=== PATIENT | female | born 1965 | race Caucasian/White ===

== ENCOUNTER 2016-09-01 13:08 | Emergency (ER) | payer BC ==
[2016-09-01 13:15] VITALS: BP 126/83; PULSE 84; TEMP 98.1; BMI 35.2
--- NOTE | 2016-09-01 13:53 | PDOC ---
History of Present Illness - General Chief Complaint: Carbon Monoxide Exposure Stated Complaint: EXPOSURE TO CO Time Seen by Provider: 09/01/16 13:40 History Source: Patient Exam Limitations: No Limitations - History of Present Illness Initial Comments: 09/01/16 13:49 50-year-old female sent over from doctor's office for evaluation of intermittent generalized headaches over the past few weeks associated with mild generalized fatigue. Patient states was told by the fire department and police department to go to the nearest ER since there is concern for carbon monoxide exposure. Patient denies visual changes, nausea, chest pain or shortness of breath. Patient does state has an old soreness in the house and has no carbon monoxide detectors in the home. Timing/Duration: getting worse, intermittent Severity: moderate Associated Symptoms: reports: headaches, other (fatigue) Past History - Travel Traveled outside of the country in the last 30 days: No Close contact w/someone who was outside of country & ill: No - Past Medical History Allergies/Adverse Reactions: Allergies Allergy/AdvReac Type Severity Reaction Status Date / Time red dye Allergy Intermediate Swelling Verified 09/01/16 13:12 "cillins" Allergy Mild rash, itchy Uncoded 09/01/16 13:11 Home Medications: Ambulatory Orders Levothyroxine [Synthroid -] 50 mcg PO ASDIR 09/01/16 Omeprazole 20 mg PO ASDIR 09/01/16 GI Disorders: Yes (CHRONIC PANCREATITIS.) - Surgical History Abdominal Surgery: Yes (PANCREAS X 2.) Cholecystectomy: Yes Neurologic Surgery: Yes (RT CARPAL TUNNEL.) - Psycho/Social/Smoking Cessation Hx Anxiety: No Suicidal Ideation: No Smoking History: Never smoked Hx Alcohol Use: No Drug/Substance Use Hx: No Substance Use Type: None Patient Lives Alone: No Lives with/in: spouse/SO Review of Systems - Review of Systems Able to Perform ROS?: Yes Constitutional: Yes: Malaise HEENTM: No: Symptoms Reported Respiratory: No: Symptoms reported Cardiac (ROS): No: Symptoms Reported ABD/GI: No: Nausea, Abdominal cramping : No: Symptoms Reported Musculoskeletal: No: Symptoms Reported Integumentary: No: Symptoms Reported Neurological: Yes: Headache, Weakness Hematologic/Lymphatic: No: Symptoms Reported *Physical Exam - Vital Signs Last Vital Signs Temp Pulse Resp BP Pulse Ox 98.1 F 84 18 126/83 97 09/01/16 13:09 04/23/17 13:09 09/01/16 13:09 09/01/16 13:09 09/01/16 13:09 - Physical Exam General Appearance: Yes: Nourished, Appropriately Dressed. No: Apparent Distress HEENT: positive: EOMI, WINTER, Pharynx Normal. negative: Pale Conjunctivae Neck: positive: Supple Respiratory/Chest: positive: Lungs Clear, Normal Breath Sounds. negative: Respiratory Distress, Accessory Muscle Use Cardiovascular: positive: Regular Rhythm, Regular Rate. negative: Murmur Gastrointestinal/Abdominal: positive: Soft. negative: Tenderness Integumentary: positive: Normal Color, Warm, Moist Neurologic: positive: Normal Mood/Affect, Motor Strength 5/5 Deep Tendon Reflexes: Knee (L): 2+, Knee (R): 2+ Medical Decision Making - Medical Decision Making 09/01/16 13:52 Patient sent to the ED for possible carbon monoxide exposure. Patient complaining of generalized fatigue over the past few weeks associated with intermittent generalized headache. Patient has no other complaints and had no acute findings on exam. Patient ordered for ABG and high flow oxygen via nonrebreather 15 minutes. 09/01/16 15:01 Laboratory Tests 09/01/16 14:00 VBG pH 7.33 POC VBG pCO2 49.8 POC VBG pO2 30.9 Mixed VBG HCO3 26.0 H Carboxy level 0.8. Patient will be discharged home and to follow-up with the fire and police as recommended. *DC/Admit/Observation/Transfer Diagnosis at time of Disposition: Evaluation by medical service required - Discharge Dispostion Disposition: HOME Condition at time of disposition: Good - Patient Instructions Printed Discharge Instructions: DI for Headache Additional Instructions: May take Motrin or Tylenol for discomfort and please follow the recommendations as discussed with your fire and police department.
[2016-09-01 14:44] LABS: VENOUS PH 7.33 (7.32-7.42)
== END 2016-09-01 15:06 | disposition home or self-care (01) ==
LOC: JERFT 13:08
DX: Z77.29 Contact with and (suspected) exposure to other hazardous substances (principal)
CPT/HCPCS: 82375; 82803; 99281-25

== ENCOUNTER 2016-10-29 14:48 | Emergency (ER) | payer BC ==
[2016-10-29] MEDS ORDERED: SODIUM CHLORIDE 1,000 ML IV STA (14:51)
[2016-10-29] MEDS ORDERED: methylPREDNISolone NA SUCC 125 MG/2 ML VIAL IVPB ONE (14:51)
[2016-10-29] MEDS ORDERED: FAMOTIDINE 20 MG/50 ML IVPB 50 ML IVPB ONE ×2 (14:51→14:59)
[2016-10-29] MEDS ORDERED: ONDANSETRON 4 MG/2 ML VIAL IVPB ONE (14:52)
--- NOTE | 2016-10-29 14:55 | PDOC ---
History of Present Illness - History of Present Illness Initial Comments: 10/29/16 14:57 Patient is a 51 year old female with significant medical hx of chronic pancreatitis, hypothyroidism, and red dye allergy who is presenting to the ED with an allergic reaction that occurred a half hour prior to arrival. The patient reports eating food that she later found out that was made with red dye. She reports facial itching, swelling, and numbness to her upper and lower lips. She also notes numbness and tingling to the tip of her tongue. The patient notes this is normal for her during an allergic reaction; she also usually has nausea and vomiting. Patient saw a physician on site at her job and she was referred to the ED for further evaluation. She denies any nausea or vomiting at this time, diarrhea, rash, throat swelling, airway compromise, or dyspnea. Surgical Hx: pancreatic surgery x 2, right carpal tunnel, cholecystectomy Allergies: red dye <Lori Dudley - Last Filed: 10/29/16 14:57> - General History Source: Patient Exam Limitations: No Limitations <Vlad Lizarraga - Last Filed: 10/29/16 17:02> - General Stated Complaint: ALLERGIC REACTION Time Seen by Provider: 10/29/16 14:50 Past History <Lori Dudley - Last Filed: 10/29/16 14:57> - Past Medical History GI Disorders: Yes (CHRONIC PANCREATITIS.) - Surgical History Abdominal Surgery: Yes (PANCREAS X 2.) Cholecystectomy: Yes Neurologic Surgery: Yes (RT CARPAL TUNNEL.) - Psycho/Social/Smoking Cessation Hx Anxiety: No Suicidal Ideation: No Smoking History: Never smoked Hx Alcohol Use: No Drug/Substance Use Hx: No Substance Use Type: None <Vlad Lizarraga - Last Filed: 10/29/16 17:02> - Past Medical History Allergies/Adverse Reactions: Allergies Allergy/AdvReac Type Severity Reaction Status Date / Time red dye Allergy Intermediate Swelling Verified 10/29/16 15:10 "cillins" Allergy Mild rash, itchy Uncoded 09/01/16 13:11 Home Medications: Ambulatory Orders Levothyroxine [Synthroid -] 0 mcg PO ASDIR 09/01/16 Omeprazole 20 mg PO ASDIR 09/01/16 Review of Systems - Review of Systems Comments:: 10/29/16 14:58 GENERAL/CONSTITUTIONAL: No fever or chills. No weakness. HEAD, EYES, EARS, NOSE AND THROAT: Facial swelling, itchiness, and numbness to upper and lower lips. Numbness to tongue. No change in vision. No ear pain or discharge. No sore throat. CARDIOVASCULAR: No chest pain or shortness of breath. RESPIRATORY: No cough, wheezing, or hemoptysis. GASTROINTESTINAL: No nausea, vomiting, diarrhea or constipation. GENITOURINARY: No dysuria, frequency, or change in urination. MUSCULOSKELETAL: No joint or muscle swelling or pain. No neck or back pain. ENDOCRINE: No increased thirst. No abnormal weight change. SKIN: No rash NEUROLOGIC: No headache, vertigo, loss of consciousness, or change in strength/ sensation. <Lori Dudley - Last Filed: 10/29/16 14:57> *Physical Exam - Physical Exam Comments: 10/29/16 14:59 GENERAL: Awake, alert, and fully oriented, in no acute distress HEAD: No signs of trauma EYES: PERRLA, EOMI, sclera anicteric, conjunctiva clear ENT: Auricles normal inspection, hearing grossly normal, nares patent, oropharynx clear without exudates. Moist mucosa NECK: Normal ROM, supple, no lymphadenopathy, JVD, or masses LUNGS: Breath sounds equal, clear to auscultation bilaterally. No wheezes, and no crackles HEART: Regular rate and rhythm, normal S1 and S2, no murmurs, rubs or gallops ABDOMEN: Soft, nontender, normoactive bowel sounds. No guarding, no rebound. No masses EXTREMITIES: Normal range of motion, no edema. No clubbing or cyanosis. No cords, erythema, or tenderness NEUROLOGICAL: Cranial nerves II through XII grossly intact. Normal speech, normal gait SKIN: Warm, Dry, normal turgor, no rashes or lesions noted. HEMATOLOGIC/LYMPHATIC: No anemia, easy bleeding, or history of blood clots. ALLERGIC/IMMUNOLOGIC: No hives or skin allergy. <Lori Dudley - Last Filed: 10/29/16 14:57> Medical Decision Making - Medical Decision Making 10/29/16 14:53 A portion of this note was documented by scribe services under my direction. I have reviewed the details of the note, within reason, and agree with the documentation with the following case summary and management plan written by me. Patient treated in the ED. Nursing notes are reviewed and incorporated into the medical decision-making. Vital signs reviewed. Peripheral IV access obtained by the nurse, laboratory studies are drawn and sent, reviewed and interpreted by myself. 51-year-old female with no medical history presents with ALLERGIC reaction. Approximately half an hour prior to arrival, patient ate some food that contained red dye which she is ALLERGIC to. Started developing facial itching and swelling and tingling of her tongue. Denies difficulty breathing. Patient reports they she will soon become nauseous. At this time, we'll initiate IV fluids, Benadryl, Pepcid, Solu-Medrol and observe the patient. Symptom control and observation. Diagnosis: ALLERGIC reaction. 10/29/16 17:02 Case signed out to Dr. Bryan. <Vlad Lizarraga - Last Filed: 10/29/16 17:02> *DC/Admit/Observation/Transfer - Attestations Scribe Attestion: 10/29/16 14:59 Documentation prepared by Lori Dudley, acting as medical genetics director for Vlad Lizarraga MD. <Lori Dudley - Last Filed: 10/29/16 14:57>
[2016-10-29] MEDS ORDERED: methylPREDNISolone NA SUCC 125 MG/2 ML VIAL ONE (14:59)
[2016-10-29] MEDS ORDERED: ONDANSETRON 4 MG/2 ML VIAL ONE (14:59)
[2016-10-29 15:22] VITALS: BMI 36.1
--- NOTE | 2016-10-29 17:25 | PDOC ---
*Physical Exam - Vital Signs Last Vital Signs Temp Pulse Resp BP Pulse Ox 98.3 F 67 18 158/92 99 10/29/16 14:49 10/29/16 14:49 10/29/16 14:49 10/29/16 15:05 10/29/16 14:49 ED Treatment Course - Medications Given in the ED: ED Medications Discontinued Medications Generic Name Dose Route Start Last Admin Trade Name Vesta PRN Reason Stop Dose Admin Diphenhydramine HCl 50 mg 10/29/16 14:51 10/29/16 15:06 Benadryl Injection - IVPB 10/29/16 14:52 50 mg ONCE ONE Administration Famotidine/Sodium Chloride 50 mls @ 100 mls/hr 10/29/16 14:51 10/29/16 15:04 Pepcid 20 Mg Premixed Ivpb - IVPB 10/29/16 15:20 100 mls/hr ONCE ONE Administration Sodium Chloride 1,000 mls @ 1,000 mls/hr 10/29/16 14:51 10/29/16 15:05 Normal Saline - IV 10/29/16 15:50 1,000 mls/hr ASDIR STA Administration Methylprednisolone Sodium Succinate 125 mg 10/29/16 14:51 10/29/16 15:04 Solu-Medrol - IVPB 10/29/16 14:52 125 mg ONCE ONE Administration Ondansetron HCl 4 mg 10/29/16 14:52 10/29/16 15:04 Zofran Injection IVPB 10/29/16 14:53 4 mg ONCE ONE Administration Progress Note - Progress Note Progress Note: Care of this patient was transferred me to ri from Dr. Lizarraga at 5 PM. Patient is a 51-year-old female who comes in with an ALLERGIC reaction to red dye. Patient has a history of severe ALLERGIC reaction to red dye in the past and did ingest some red dye. Patient had a relatively mild reaction here but was given Benadryl, Pepcid, and prednisone. Patient's symptoms have improved she will be observed for a total of 4 hours and then discharged home with a Medrol Dosepak. *DC/Admit/Observation/Transfer Diagnosis at time of Disposition: Allergic reaction Qualifiers: Encounter type: initial encounter Qualified Code(s): T78.40XA - Allergy, unspecified, initial encounter - Discharge Dispostion Disposition: HOME Admit: No - Patient Instructions Additional Instructions: If any symptoms return you can take Benadryl 2 tablets as often as every 4 hours if needed or you can get [id number] long-acting antihistamine such as Nicol or Claritin and take that twice a day instead. In addition to that get the prescription for the Medrol Dosepak and take as per the Medrol Dosepak instructions. Return to the emergency department immediately with ANY new, persistent or worsening symptoms. Continue any medications as previously prescribed by your physician. You should follow up with your primary doctor as soon as possible regarding today's emergency department visit. . Please make sure your doctor reviews the results of your emergency evaluation. Thank you for coming to the Emergency Department today for your care. It was a pleasure to see you today. Please note that your evaluation is INCOMPLETE until you follow-up with your doctor.
[2016-10-29 19:05] VITALS: BP 125/85; PULSE 84; TEMP 98.4
== END 2016-10-29 19:16 | disposition home or self-care (01) ==
LOC: FER 14:48
PROC: 3E033GC Introduction of Other Therapeutic Substance into Peripheral Vein, Percutaneous Approach (ICD-10-PCS; principal; 2016-10-29)
PROC: 3E0337Z Introduction of Electrolytic and Water Balance Substance into Peripheral Vein, Percutaneous Approach (ICD-10-PCS; 2016-10-29)
DX: T78.40XA Allergy, unspecified, initial encounter (principal); K86.1 Other chronic pancreatitis
CPT/HCPCS: 99282-25